=== PATIENT | female | born 2000 | race Caucasian/White ===

== ENCOUNTER 2020-03-05 08:55 | Inpatient (IN) | payer OTHER ==
[2020-03-05 10:09] VITALS: BMI 33.3
[2020-03-05 10:28] LABS: BASO % 0.5 % (0-2.0); EOS % 1.3 % (0-4.5); HEMATOCRIT 36.1 % (32.4-45.2); HEMOGLOBIN 11.9 GM/dL (10.7-15.3); LYMPH % 21.7 % (8-40); MCH 29.7 pg (25.7-33.7); MEAN CELL VOLUME 90.1 fl (80-96); MEAN PLT VOLUME 9.5 fl (7.5-11.1); MONO % 5.3 % (3.8-10.2); NEUT % 71.2 % (42.8-82.8); PLATELET COUNT 239 K/MM3 (134-434); RBC 4.01 M/mm3 (3.60-5.2); RDW 14.1 % (11.6-15.6); WHITE BLOOD COUNT 11.1 K/mm3 (4.0-10.0)
[2020-03-05 10:36] LABS: INR 0.93 (0.83-1.09); PROTHROMBIN TIME (PATIENT) 11.5 SEC (9.7-13.0)
[2020-03-05 10:39] LABS: ACTIVATED PTT 25.8 SECONDS (25.2-36.5)
[2020-03-05] MEDS ORDERED: ELECTROLYTE-148 SOLN 1,000 ML IV SCH (10:45)
[2020-03-05 10:49] LABS: CALCIUM 9.2 mg/dL (8.5-10.1)
[2020-03-05 10:50] LABS: BLOOD UREA NITROGEN 15.4 mg/dL (7-18)
[2020-03-05 10:53] LABS: CREATININE 0.6 mg/dL (0.55-1.3)
[2020-03-05 11:43] LABS: HIV INTERPRETATION NEGATIVE (NEGATIVE)
[2020-03-05] MEDS ORDERED: FENTANYL/BUPIVACAINE/NS/PF - PCEA - 50 ML DISP.SYRIN EP ONE (13:35)
[2020-03-05] MEDS ORDERED: PCA PUMP NR ONE (13:35)
[2020-03-05] MEDS ORDERED: BUPIVACAINE HCL/PF 0.25% (2.5MG/ML) 10 ML VIAL ONE (13:52)
[2020-03-05] MEDS ORDERED: NALOXONE HCL 0.4 MG/ML VIAL IVPUSH PRN (14:08)
[2020-03-05] MEDS ORDERED: FENTANYL/BUPIVACAINE/NS/PF - PCEA - 50 ML DISP.SYRIN EP SCH (14:15)
[2020-03-05] MEDS ORDERED: LIDOCAINE HCL 1% PRESERVATIVE FREE - 30ML VIAL ONE (14:16)
[2020-03-05] MEDS ORDERED: OXYTOCIN 20 UNITS in 0.9% NS 20 UNIT/1,000 ML INFUS.BAG IV ONE (14:16)
[2020-03-05] MEDS: OXYTOCIN 20 UNITS in 0.9% NS 20 UNIT/1,000 ML INFUS.BAG IV SCH (14:45)
[2020-03-05] MEDS ORDERED: METHYLERGONOVINE MALEATE 0.2 MG/1 ML AMP IM PRN (14:59)
[2020-03-05] MEDS ORDERED: WITCH HAZEL 50% (TUCKS) 40 PAD/JAR PAD TP PRN (14:59)
[2020-03-05] MEDS ORDERED: BENZOCAINE 28 GM HEMORRHOIDAL OINTMENT TP PRN (14:59)
[2020-03-05] MEDS ORDERED: BISACODYL 10 MG SUPP.RECT RC PRN (14:59)
[2020-03-05] MEDS ORDERED: BENZOCAINE 20% 57 GM BOTTLE TP PRN (14:59)
[2020-03-05] MEDS ORDERED: oxyCODONE HCL 5 MG TABLET PO PRN (14:59)
[2020-03-05] MEDS ORDERED: DEXTROSE 5%-LACTATED RINGERS 1,000 ML IV SCH (15:00)
[2020-03-05] MEDS: IBUPROFEN 600 MG TABLET (FP) PO PRN (17:22)
[2020-03-05] MEDS: ACETAMINOPHEN 325 MG TABLET (FP) PO PRN (17:23)
[2020-03-06] MEDS: ACETAMINOPHEN 325 MG TABLET (FP) PO PRN ×2 (00:20→19:14)
[2020-03-06] MEDS: IBUPROFEN 600 MG TABLET (FP) PO PRN ×2 (00:21→19:13)
[2020-03-06 08:58] LABS: BASO % 0.7 % (0-2.0); EOS % 1.6 % (0-4.5); HEMATOCRIT 31.2 % (32.4-45.2); HEMOGLOBIN 10.2 GM/dL (10.7-15.3); MCH 30.1 pg (25.7-33.7); MCHC 32.8 g/dl (32.0-36.0); MEAN CELL VOLUME 91.9 fl (80-96); MEAN PLT VOLUME 9.7 fl (7.5-11.1); MONO % 4.8 % (3.8-10.2); NEUT % 62.9 % (42.8-82.8); PLATELET COUNT 203 K/MM3 (134-434); RBC 3.39 M/mm3 (3.60-5.2); RDW 14.5 % (11.6-15.6); WHITE BLOOD COUNT 11.7 K/mm3 (4.0-10.0)
[2020-03-06] MEDS: PRENATAL VITAMINS W/ FOLIC ACID TABLET (FP) PO SCH (09:52)
[2020-03-06] MEDS ORDERED: FLU VACCINE (FLULAVAL) PF 60 MCG/0.5 ML SYRINGE 2020-2021 IM ONE (10:00)
[2020-03-06] MEDS ORDERED: DIPHTH,PERTUSS(ACELL),TET 0.5 ML DISP.SYRIN IM ONE (10:00)
[2020-03-06] MEDS: OXYTOCIN 20 UNITS in 0.9% NS 20 UNIT/1,000 ML INFUS.BAG IV SCH (18:15)
[2020-03-06] MEDS ORDERED: SENNOSIDES/DOCUSATE COMBO (SENNA PLUS) TABLET (UD) PO PRN (22:00)
[2020-03-07] MEDS: ACETAMINOPHEN 325 MG TABLET (FP) PO PRN (08:26)
[2020-03-07] MEDS: IBUPROFEN 600 MG TABLET (FP) PO PRN (08:27)
[2020-03-07] MEDS: PRENATAL VITAMINS W/ FOLIC ACID TABLET (FP) PO SCH (09:05)
[2020-03-07 10:28] VITALS: BP 100/62; PULSE 78; TEMP 97.6
== END 2020-03-07 13:10 | disposition home or self-care (01) | DRG 560 ==
LOC: JLDR 08:55 → J3W 16:34
PROVIDERS: ADMIT Obstetrics & Gynecology; ATTEND Obstetrics & Gynecology
PROC: 10E0XZZ Delivery of Products of Conception, External Approach (ICD-10-PCS; principal; 2020-03-05)
DX: O80 Encounter for full-term uncomplicated delivery (principal); Z3A.37 37 weeks gestation of pregnancy; Z37.0 Single live birth
CPT/HCPCS: 36415; 59409; 80048; 85025; 85610; 85730; 86780; 86850; 86900; 86901; 87389; 90715; C9803; G0008; Q2036; U0003